=== PATIENT | female | born 1990 | race American Indian/Alaskan Native ===

== ENCOUNTER 2016-12-12 12:45 | Emergency (ER) | payer OTHER ==
[2016-12-12 12:58] VITALS: TEMP 99.1
[2016-12-12] MEDS ORDERED: Naproxen 550 mg Tab PO STA (13:27)
[2016-12-12] MEDS ORDERED: Naproxen 550 mg Tab PO ONE (13:47)
--- NOTE | 2016-12-12 13:49 | C.PDOC ---
Time Seen by Provider: 12/12/16 13:18 Chief Complaint (Nursing): Chest Pain History Per: Patient Onset/Duration Of Symptoms: Days (about 2-3 months) Current Symptoms Are (Timing): Still Present Severity: Moderate Location Of Discomfort (Image): 1 - Left costosternal border Quality: Sharp, Burning Associated Symptoms: denies: Nausea, Dyspnea, Diaphoresis, Syncope Modifying Factors: Other Indicated Below Exacerbating Factors: Turning, Movement Alleviating Factors: None Additional History Per: Prior Records Past Medical History Reviewed: Historical Data, Nursing Documentation, Vital Signs Vital Signs: Last Vital Signs Temp 99.1 F 12/12/16 12:54 Pulse 71 12/12/16 12:54 Resp 16 12/12/16 12:54 BP 133/86 12/12/16 12:54 Pulse Ox 97 12/12/16 13:50 - Medical History PMH: No Chronic Diseases Surgical History: No Surg Hx Family History: States: Unknown Family Hx - Social History Hx Tobacco Use: Yes Hx Alcohol Use: Yes Hx Substance Use: No - Immunization History Hx Tetanus Toxoid Vaccination: No Hx Influenza Vaccination: No Hx Pneumococcal Vaccination: No Review Of Systems Except As Marked, All Systems Reviewed And Found Negative. Constitutional: Negative for: Fever, Weakness ENT: Positive for: Nose Congestion (since yesterday). Negative for: Throat Pain Cardiovascular: Positive for: Chest Pain Respiratory: Negative for: Cough, Shortness of Breath, Hemoptysis Gastrointestinal: Negative for: Vomiting, Abdominal Pain Musculoskeletal: Negative for: Neck Pain, Leg Pain Skin: Negative for: Rash Neurological: Negative for: Weakness, Numbness, Seizures, Altered Mental Status Physical Exam - Physical Exam Appears: Non-toxic, No Acute Distress Skin: Normal Color, Warm, Dry, No Rash Head: Atraumatic, Normacephalic Eye(s): bilateral: Normal Inspection, PERRL, EOMI Neck: Normal ROM, Supple Chest: Symmetrical, No Deformity, Tenderness (at left costosternal border), No Ecchymosis, No Subcutaneous Emphysema Cardiovascular: Rhythm Regular Respiratory: Normal Breath Sounds, No Accessory Muscle Use Gastrointestinal/Abdominal: Soft, No Tenderness Back: No CVA Tenderness Extremity: Normal ROM, No Pedal Edema, No Calf Tenderness Neurological/Psych: Oriented x3, Normal Motor, Normal Sensation ED Course And Treatment ECG: Interpreted By Me, Viewed By Me ECG Rhythm: Sinus Rhythm, Nonspecific Changes ECG Interpretation: No Acute Changes Rate From EC O2 Sat by Pulse Oximetry: 97 Pulse Ox Interpretation: Normal - Radiology CXR: Interpreted by Me, Viewed By Me CXR Interpretation: Yes: No Acute Disease Medical Decision Making Medical Decision Making: PERC rule negative Disposition Counseled Patient/Family Regarding: Studies Performed, Diagnosis, Need For Followup, Rx Given, Smoking Cessation - Disposition Referrals: John Ho MD [Staff Provider] - Disposition: HOME/ ROUTINE Disposition Time: 13:56 Condition: STABLE Additional Instructions: Follow up with your doctor within 1 week for further evaluation and treatment. Return to the ER if you develop shortness of breath, coughing blood, worsening of symptoms or if you have any other concerns. Prescriptions: Famotidine [Pepcid] 20 mg PO BID #30 tab Naproxen [Naprosyn] 1 tab PO BID PRN #20 tab PRN Reason: Pain Instructions: Costochondritis (ED) Print Language: KINYARWANDA - Clinical Impression Clinical Impression: Non-cardiac chest pain
[2016-12-12 14:23] VITALS: BP 115/75; PULSE 68; RESP 12; O2SAT 98
--- NOTE | 2016-12-12 15:22 | RAD ---
HISTORY: Left chest pain COMPARISON: No prior. TECHNIQUE: Chest PA and lateral FINDINGS: LUNGS: No active pulmonary disease. PLEURA: No significant pleural effusion identified. No pneumothorax apparent. CARDIOVASCULAR: Normal. OSSEOUS STRUCTURES: No significant abnormalities. VISUALIZED UPPER ABDOMEN: Normal. OTHER FINDINGS: None. IMPRESSION: No active disease.
== END 2016-12-12 14:23 | disposition home or self-care (01) ==
LOC: C.ER 12:45
DX: R07.89 Other chest pain (principal)